=== PATIENT | female | born 1945 | race Caucasian/White ===

== ENCOUNTER 2018-10-03 08:47 | Emergency (ER) | payer MEDICARE, OTHER, SELFPAY ==
[2018-10-03 08:54] VITALS: BP 128/60; PULSE 77; RESP 16; TEMP 36.6; O2SAT 99; BMI 18.9
--- NOTE | 2018-10-03 09:02 | ED.GENADULT ---
HPI - General Adult General Chief complaint: Upper Respiratory Symptoms Stated complaint: Cant swallow Time Seen by Provider: 10/03/18 08:54 Source: patient and family ( and daughter) Mode of arrival: ambulatory Limitations: no limitations History of Present Illness HPI narrative: This is a 73-year-old female who comes in with complaint of feeling there is a piece of food stuck in her esophagus. Patient states that she was having toast and banana earlier today. While she was eating it feels like it did make it past. She states that she threw up just a little bit and some of that fluid came out but she still feels like there is some stuck. She has continued to have to spit her saliva and has not been able to swallow her secretions. Patient states that she had sort of similar symptoms in the past but was always able to swallow things. She has not had issues for a while. She did have an EGD and evaluation and was told that her esophagus is weak but they did see any strictures or other changes at that time, this was 7 or 8 years ago. She takes alendonate. She denies any other medical problems. She has been wearing a heart monitor because she has had palpitations. She has had a hysterectomy but no other surgeries. She does not smoke, she occasionally drinks alcohol no illicit. She is visiting her daughter there from [facility] she is accompanied by her . She denies any fevers. Other than the discomfort that she can small she does not have any other chest pain or shortness of breath. She has not had any other vomiting besides the 1 episode this morning. No other GI or urinary symptoms. No palpitations currently. Related Data Home Medications Medication Instructions Recorded Confirmed alendronate 70 mg PO QWEEK 10/03/18 Review of Systems Review of Systems ROS Unobtainable: All systems reviewed & are unremarkable except as noted in HPI and below ENT Ears, Nose, Mouth, and Throat: Reports dysphagia Cardiovascular Reports chest pain (feels like food stuck in esophagus) and Denies dyspnea Respiratory Denies chest congestion, Denies cough, Denies dyspnea, Denies stridor and Denies wheezing Gastrointestinal Gastrointestinal: Denies abdominal pain, Denies change in stool character, Denies constipation, Reports dysphagia, Denies diarrhea, Denies nausea and Reports vomiting (X1) Genitourinary Denies urinary frequency, Denies dysuria, Denies urinary hesitancy and Denies urinary urgency Allergic/Immunologic Denies wheezing PFSH Social History (Updated 10/03/18 @ 09:15 by Roslyn Jacques DO) marital status: details: Lives in [place] Smoking Status: Never smoker alcohol intake: current substance use type: does not use Exam Narrative Exam Narrative: GENERAL: Alert and oriented x three, thin, well-appearing elderly female in mild distress. HEENT: Head normocephalic, atraumatic, EOMI, pupils reactive, face symmetric, moist mucous membranes, no hoarseness. No muffled voice. NECK: Supple, full range of motion CARDIOVASCULAR: Regular rate and rhythm without murmurs, rubs or gallops. RESPIRATORY: Breath sounds equal bilaterally, no wheezes rales or rhonchi. ABDOMEN: Soft, nontender. Normoactive bowel sounds all 4 quadrants. No guarding or rebound, rigidity, no mass. Patient is spitting clear saliva intermittently into a cup. : No CVA tenderness EXTREMITIES: Normal range of motion, no clubbing or edema. Neurovascularly intact NEUROLOGICAL: Cranial nerves II through XII grossly intact. Moving all extremities SKIN: Warm, dry, no petechiae, no rashes or lesions. Initial Vital Signs Initial Vital Signs: Vital Signs Temperature 97.9 F 10/03/18 08:54 Pulse Rate 77 10/03/18 08:54 Respiratory Rate 16 10/03/18 08:54 Blood Pressure 128/60 10/03/18 08:54 Pulse Oximetry 99 10/03/18 08:54 Course Orders Ordered: Discontinued Medications Glucagon (Glucagen) 1 mg IV NOW ONE Stop: 10/03/18 09:02 Last Admin: 10/03/18 09:21 Dose: 1 mg Ondansetron HCl (Zofran) 4 mg IV NOW ONE Stop: 10/03/18 09:02 Last Admin: 10/03/18 09:21 Dose: 4 mg Vital Signs - 8 hr 10/03/18 08:54 10/03/18 10:08 Temperature 97.9 F Pulse Rate 77 66 Respiratory Rate 16 16 Blood Pressure 128/60 Blood Pressure [Left Wrist] 109/63 Pulse Oximetry 99 95 Medical Decision Making Imaging Data Chest x-ray: Attestation: I personally reviewed and interpreted this imaging study as follows: My impression: no acute process. not ready by radiology. Patient does appear to have implants bilaterally. Radiologist's impression: [address] [address] XRay Report Signed Patient: Libia Agee JMR#: [id number] : 3Acct:[id number] Age/Sex: 73 / FDate of Service: 10/03/18 Loc: ED Accession Number: [id number] Procedure: XR chest 2V Ordering Provider: Roslyn Jacques D.O. PROCEDURE: XR CHEST 2V INDICATIONS: suspected food bolus, passed after glucagon. slight s/s sti TECHNIQUE: 2 views of the chest were acquired. COMPARISON: None. FINDINGS: Surgical changes and devices: Bilateral breast implants with partially calcified capsules. Lungs and pleura: Lungs are clear. No pleural effusions or pneumothorax. Mediastinum: Mediastinal contours are normal. Heart size is normal. Bones and chest wall: No suspicious bony abnormalities. Soft tissues appear unremarkable. IMPRESSION: No acute cardiopulmonary disease process. Dictated by: Annette Leos MD, PhD on 10/03/2018 at 10:36 Approved by: Annette Leos MD, PhD on 10/03/2018 at 10:36 [facility] Narrative Medical decision making narrative: Glucagon IV attempted with improvement of symptoms. Patient is able to swallow liquids as well as her own saliva. She does have a little bit of retained sensation. We discussed this could be from abrasion or irritation of the esophagus. If she is tolerating fluids she does not need further intervention at this time. Patient is discussed she does need follow-up with EGD as an outpatient specialist her last 1 was 7 or 8 years ago. She has recurrent symptoms she should return to the closest ER. I evaluated her chest x-ray she appears have implants but no other obvious changes it has not been read by Radiology yet. Patient's family was updated to this and they wished to leave now without final report. Discharge Plan Departure Patient Disposition: Home Clinical Impression: Food impaction of esophagus Qualifiers: Encounter type: initial encounter Qualified Code(s): T18.128A - Food in esophagus causing other injury, initial encounter Discharge Date/Time: 10/03/18 10:44 Interventions: ED Discharge Assessment Last Done: 10/03/18 10:43 Instructions: Steakhouse Syndrome Activity Restrictions/Additional Instructions: Follow-up with your physician and/or epoxy specialist if he still have 1 for recheck and EGD as an outpatient. You may continue home medication as prescribed. Advance your diet as tolerated. Your chest x-ray does not show any clear acute changes on exam. It has not been read by the radiologist yet. Return to the ER for fevers greater than 100.4 F, rapidly worsening or new chest pain, shortness of breath, persistent vomiting, inability to swelling or saliva or spit. Recurrent symptoms. Black or bloody stools, no abdominal pain or other new or concerning symptoms. Prescriptions: No Action alendronate 70 mg tablet 70 mg PO QWEEK RF: 0
--- NOTE | 2018-10-03 09:07 | ED_ITS ---
HPI - General Adult General Chief complaint: Upper Respiratory Symptoms Stated complaint: Cant swallow Time Seen by Provider: 10/03/18 08:54 Source: patient and family ( and daughter) Mode of arrival: ambulatory Limitations: no limitations History of Present Illness HPI narrative: This is a 73-year-old female who comes in with complaint of feeling there is a piece of food stuck in her esophagus. Patient states that she was having toast and banana earlier today. While she was eating it feels like it did make it past. She states that she threw up just a little bit and some of that fluid came out but she still feels like there is some stuck. She has continued to have to spit her saliva and has not been able to swallow her secretions. Patient states that she had sort of similar symptoms in the past but was always able to swallow things. She has not had issues for a while. She did have an EGD and evaluation and was told that her esophagus is weak but they did see any strictures or other changes at that time, this was 7 or 8 years ago. She takes alendonate. She denies any other medical problems. She has been wearing a heart monitor because she has had palpitations. She has had a hystere ctomy but no other surgeries. She does not smoke, she occasionally drinks alcohol no illicit. She is visiting her daughter there from [facility] she is accompanied by her . She denies any fevers. Other than the discomfort that she can small she does not have any other chest pain or shortness of breath. She has not had any other vomiting besides the 1 episode this morning. No other GI or urinary symptoms. No palpitations currently. Related Data Home Medications Medication Instructions Recorded Confirmed alendronate 70 mg PO QWEEK 10/03/18 Review of Systems Review of Systems ROS Unobtainable: All systems reviewed & are unremarkable except as noted in HPI and below ENT Ears, Nose, Mouth, and Throat: Reports dysphagia Cardiovascular Reports chest pain (feels like food stuck in esophagus) and Denies dyspnea Respiratory Denies chest congestion, Denies cough, Denies dyspnea, Denies stridor and Denies wheezing Gastrointestinal Gastrointestinal: Denies abdominal pain, Denies change in stool character, Denies constipation, Reports dysphagia, Denies diarrhea, Denies nausea and Reports vomiting (X1) Genitourinary Denies urinary frequency, Denies dysuria, Denies urinary hesitancy and Denies urinary urgency Allergic/Immunologic Denies wheezing [facility] Social History (Updated 10/03/18 @ 09:15 by Roslyn Jacques DO) marital status: details: Lives in [place] Smoking Status: Never smoker alcohol intake: current substance use type: does not use Exam Narrative Exam Narrative: GENERAL: Alert and oriented x three, thin, well-appearing elderly female in mild distress. HEENT: Head normocephalic, atraumatic, EOMI, pupils reactive, face symmetric, moist mucous membranes, no hoarseness. No muffled voice. NECK: Supple, full range of motion CARDIOVASCULAR: Regular rate and rhythm without murmurs, rubs or gallops. RESPIRATORY: Breath sounds equal bilaterally, no wheezes rales or rhonchi. ABDOMEN: Soft, nontender. Normoactive bowel sounds all 4 quadrants. No guarding or rebound, rigidity, no mass. Patient is spitting clear saliva intermittently into a cup. : No CVA tenderness EXTREMITIES: Normal range of motion, no clubbing or edema. Neurovascularly intact NEUROLOGICAL: Cranial nerves II through XII grossly intact. Moving all extremities SKIN: Warm, dry, no petechiae, no rashes or lesions. Initial Vital Signs Initial Vital Signs: Vital Signs Temperature 97.9 F 10/03/18 08:54 Pulse Rate 77 10/03/18 08:54 Respiratory Rate 16 10/03/18 08:54 Blood Pressure 128/60 10/03/18 08:54 Pulse Oximetry 99 10/03/18 08:54 Course Orders Ordered: Discontinued Medications Glucagon (Glucagen) 1 mg IV NOW ONE Stop: 10/03/18 09:02 Last Admin: 10/03/18 09:21 Dose: 1 mg Ondansetron HCl (Zofran) 4 mg IV NOW ONE Stop: 10/03/18 09:02 Last Admin: 10/03/18 09:21 Dose: 4 mg Vital Signs - 8 hr 10/03/18 08:54 10/03/18 10:08 Temperature 97.9 F Pulse Rate 77 66 Respiratory Rate 16 16 Blood Pressure 128/60 Blood Pressure [Left Wrist] 109/63 Pulse Oximetry 99 95 Medical Decision Making Imaging Data Chest x-ray: Attestation: I personally reviewed and interpreted this imaging study as follows: My impression: no acute process. not ready by radiology. Patient does appear to have implants bilaterally. Radiologist's impression: [address] [address] XRay Report Signed Patient: Libia Agee JMR#: [id number] : 3Acct:[id number] Age/Sex: 73 / FDate of Service: 10/03/18 Loc: ED Accession Number: [id number] Procedure: XR chest 2V Ordering Provider: Roslyn Jacques D.O. PROCEDURE: XR CHEST 2V INDICATIONS: suspected food bolus, passed after glucagon. slight s/s sti TECHNIQUE: 2 views of the chest were acquired. COMPARISON: None. FINDINGS: Surgical changes and devices: Bilateral breast implants with partially calcified capsules. Lungs and pleura: Lungs are clear. No pleural effusions or pneumothorax. Mediastinum: Mediastinal contours are normal. Heart size is normal. Bones and chest wall: No suspicious bony abnormalities. Soft tissues appear unremarkable. IMPRESSION: No acute cardiopulmonary disease process. Dictated by: Annette Leos MD, PhD on 10/03/2018 at 10:36 Approved by: Annette Leos MD, PhD on 10/03/2018 at 10:36 [facility] Narrative Medical decision making narrative: Glucagon IV attempted with improvement of symptoms. Patient is able to swallow liquids as well as her own saliva. She does have a little bit of retained sensation. We discussed this could be from abrasion or irritation of the esophagus. If she is tolerating fluids she does not need further intervention at this time. Patient is discussed she does need follow-up with EGD as an outpatient specialist her last 1 was 7 or 8 years ago. She has recurrent symptoms she should return to the closest ER. I evaluated her chest x-ray she appears have implants but no other obvious changes it has not been read by Radiology yet. Patient's family was updated to this and they wished to leave now without final report. Discharge Plan Departure Patient Disposition: Home Clinical Impression: Food impaction of esophagus Qualifiers: Encounter type: initial encounter Qualified Code(s): T18.128A - Food in esophagus causing other injury, initial encounter Discharge Date/Time: 10/03/18 10:44 Interventions: ED Discharge Assessment Last Done: 10/03/18 10:43 Instructions: Steakhouse Syndrome Activity Restrictions/Additional Instructions: Follow-up with your physician and/or inspection machine tender if he still have 1 for recheck and EGD as an outpatient. You may continue home medication as prescribed. Advance your diet as tolerated. Your chest x-ray does not show any clear acute changes on exam. It has not been read by the radiologist yet. Return to the ER for fevers greater than 100.4 F, rapidly worsening or new chest pain, shortness of breath, persistent vomiting, inability to swelling or saliva or spit. Recurrent symptoms. Black or bloody stools, no abdominal pain or other new or concerning symptoms. Prescriptions: No Action alendronate 70 mg tablet 70 mg PO QWEEK RF: 0
[2018-10-03] MEDS: ONDANSETRON 4 MG/2 ML INJ IV (09:21)
[2018-10-03] MEDS: GLUCAGON,HUMAN RECOMBINANT 1 MG/ML VIAL IV (09:21)
--- NOTE | 2018-10-03 09:30 | PC.NURSE ---
Patient reports some improvement after glucagon able to swallow warm water. No long spitting up saliva. Reports improvement but still feels some slight discomfort. something is still hanging up
--- NOTE | 2018-10-03 09:34 | DI.RAD.S_ITS ---
PROCEDURE: XR CHEST 2V INDICATIONS: suspected food bolus, passed after glucagon. slight s/s sti TECHNIQUE: 2 views of the chest were acquired. COMPARISON: None. FINDINGS: Surgical changes and devices: Bilateral breast implants with partially calcified capsules. Lungs and pleura: Lungs are clear. No pleural effusions or pneumothorax. Mediastinum: Mediastinal contours are normal. Heart size is normal. Bones and chest wall: No suspicious bony abnormalities. Soft tissues appear unremarkable. IMPRESSION: No acute cardiopulmonary disease process. Dictated by: Annette Leos MD, PhD on 10/03/2018 at 10:36 Approved by: Annette Leos MD, PhD on 10/03/2018 at 10:36
[2018-10-03 10:08] VITALS: BP 109/63; PULSE 66; RESP 16; O2SAT 95
== END 2018-10-03 10:44 | disposition home or self-care (01) ==
PROVIDERS: Emergency Provider Emergency Medicine
DX: T18.128A Food in esophagus causing other injury, initial encounter (principal)
CPT/HCPCS: 36591; 71046; 96374; 96375; 99282; 99284; J1610; J2405

== ENCOUNTER 2018-10-04 23:18 | Observation (INO) | payer MEDICARE, OTHER, SELFPAY ==
[2018-10-04 23:23] VITALS: BP 155/98; PULSE 141; RESP 25; TEMP 36.6; O2SAT 98; BMI 18.9
--- NOTE | 2018-10-04 23:23 | DI.RAD.S_ITS ---
PROCEDURE: XR CHEST 1V INDICATIONS: new onset atrial fibrillation TECHNIQUE: One view of the chest was acquired. COMPARISON: [facility], CR, XR CHEST 2V, 10/03/2018, 9:36. FINDINGS: Surgical changes and devices: Rim calcified mammoplasty implants are seen. Lungs and pleura: Lungs are clear. No pleural effusions or pneumothorax. Mediastinum: The cardiac contours are within normal limits. The aorta demonstrates calcification and tortuosity. Bones and chest wall: No suspicious bony lesions. Mild dextroconvex scoliotic curvature is seen. Age-appropriate osteopenia and bony degenerative changes are seen. Overlying soft tissues appear unremarkable. IMPRESSION: No acute abnormality is seen on this portable chest study. Postoperative and degenerative changes are seen. Dictated by: Guillermo Hagen M.D. on 10/05/2018 at 7:43 Approved by: Guillermo Hagen M.D. on 10/05/2018 at 7:44
[2018-10-04 23:30] VITALS: BP 113/85; PULSE 134; RESP 19; O2SAT 98
[2018-10-04] MEDS: ASPIRIN 81 MG TAB 324 MG PO (23:35)
[2018-10-04] MEDS: SODIUM CHLORIDE 0.9% 1,000 ML 150 ML IV (23:35)
[2018-10-04 23:44] LABS: Add Manual Diff / Slide Review NO; Basophils Absolute Auto 0 /uL (0-100); Basophils Percent Auto 0.7 % (0-2); Eosinophils Absolute Auto 100 /uL (0-450); Eosinophils Percent Auto 2.2 % (2-4); Hematocrit 46.8 % (36-46); Hemoglobin 16.1 g/dL (12.0-16.0); Lymphocytes Absolute Auto 3200 /uL (1100-4500); Lymphocytes Percent Auto 50.9 % (25-40); Mean Corpuscular HGB Conc 34.3 % (30-36); Mean Corpuscular Hemoglobin 32.5 PG (26-34); Mean Corpuscular Volume 94.6 fL (80-100); Monocytes Absolute Auto 500 /uL (0-900); Monocytes Percent Auto 7.2 % (3-14); Neutrophils Absolute Auto 2500 /uL (1500-7000); Platelet Count 228 X10^3/uL (150-400); Red Blood Cell Count 4.95 X10^6/uL (4.0-5.2); Red Cell Distribution Width 13.8 % (11.6-14.8); White Blood Cell Count 6.4 X10^3/uL (4.5-11.0)
[2018-10-04 23:50] LABS: Alanine Aminotransferase 19 IU/L (9-52); Albumin Globulin Ratio 1.7 (1.0-2.8); Alkaline Phosphatase 43 U/L (38-126); Aspartate Aminotransferase 30 IU/L (14-36); BUN Creatinine Ratio 25.7 (6-22); Bilirubin Total 0.9 mg/dL (0.2-1.3); Blood Urea Nitrogen 18 mg/dL (7-17); Calcium 10.3 mg/dL (8.4-10.2); Carbon Dioxide 23 mmol/L (22-32); Chloride 105 mmol/L (98-107); Creatine Kinase 34 U/L (30-135); Estimated Glomerular Filt Rate > 60.0 mL/min (>60); Globulin 2.9 g/dL (1.7-4.1); Glucose 78 mg/dL (80-110); HEMOLYSIS 19 (0-50); Lipase 136 U/L (23-300); Potassium 3.6 mmol/L (3.4-5.1); Sodium 141 mmol/L (137-145); Total Protein 7.9 g/dL (6.3-8.2)
[2018-10-05] VITALS (9 sets, daily range): BP systolic 95–121; BP diastolic 53–85; PULSE 58–141; RESP 11–23; TEMP 37.1; O2SAT 90–914; BMI 18.9
--- NOTE | 2018-10-05 | DI.ECHO.S_ITS ---
[facility] +---------+ : : [address] : : : : [id number] : : : : Phone: [phone]+ Echocardiogram Report + + :Name: SHARI HUBER Study Date: 10/05/2018 Height: 67 in : :[facility] Weight: 121 lb : : Gender: Female BSA: 1.6 m2 : :: 1945 Age: 73 yrs BP: 121/61 mmHg: :Reason For Study: Atrial fibrillation : :Ordering Physician: Mariel : :Hospitalist Performed By: Tara Pierce : :Referring: MONROE GORDON : + + Interpretation Summary The left ventricle is normal in size, wall thickness, and systolic function without any focal wall motion abnormalities. The right ventricle is normal in size and function. The right ventricular systolic pressure is estimated to be at least 26 mmHg based on an estimated right atrial pressure of 3 mm Hg. No hemodynamically significant valvular abnormalities. There is no prior echocardiogram noted for this patient. Procedure: A two-dimensional transthoracic echocardiogram with color flow and Doppler was performed. The study quality was technically adequate. There is no prior echocardiogram noted for this patient. The patient was in normal sinus rhythm during the exam. Left Ventricle: The left ventricle is normal in size, wall thickness, and systolic function without any focal wall motion abnormalities. The ejection fraction is estimated to be 60-65%. Diastolic parameters suggest probable normal left ventricular diastolic function and normal filling pressures. Right Ventricle: The right ventricle is normal in size and function. Atria: The left atrial size is normal. Right atrial size is normal. There is no Doppler evidence for an interatrial shunt. Mitral Valve: The mitral valve is normal in structure and function. There is trace mitral regurgitation. Aortic Valve: The aortic valve is not well visualized. The aortic valve is trileaflet. The aortic valve opens well. There is no aortic valve stenosis. No aortic regurgitation is present. Tricuspid Valve: The tricuspid valve leaflets are thin and pliable. There is trace tricuspid regurgitation. The right ventricular systolic pressure is estimated to be at least 26 mmHg based on an estimated right atrial pressure of 3 mm Hg. Pulmonic Valve: The pulmonic valve is not well visualized. There is mild pulmonic regurgitation. Great Vessels: The aortic root is normal size. The ascending aorta is at the upper limits of normal in size. The aortic arch is normal in size. The IVC is of normal diameter and collapses greater than 50% with a sniff. This suggests a low right atrial pressure of 3 mm Hg. Pericardium/ Pleura There is no pericardial effusion. MMode/2D Measurements & Calculations LVIDd: 3.9 cm LVOT diam: 2.1 cm LVIDs: 2.4 cm Ao root diam: 2.9 cm FS: 38.7 % Aortic Jxn: 2.5 cm IVSd: 0.71 cm asc Aorta Diam: 3.4 cm LVPWd: 0.80 cm Ao Arch Diam (Prox Trans): 2.7 cm LV schroedre. diameter/BSA (cm/m^2): 2.4 LV sys. diameter/BSA (cm/m^2): 1.5 LA A2 area: 18.3 cm2 RA long axis: 4.6 cm LA A4 area: 18.2 cm2 RA area: 15.7 cm2 LA length (vol): 4.9 cm RA vol: 45.3 ml LA vol: 58.0 ml RA : 27.7 ml/m2 LA vol index: 35.5 ml/m2 IVC diam: 1.4 cm RVD1 (basal): 3.2 cm TAPSE: 2.4 cm Doppler Measurements & Calculations Ao V2 max: 125.3 cm/sec LVOT Max Cole: 120.9 cm/sec Ao V2 mean: 86.7 cm/sec LV V1 max P.8 mmHg Ao max P.3 mmHg LV V1 VTI: 24.5 cm Ao mean P.4 mmHg NATO(I,D): 3.3 cm2 Ao V2 VTI: 25.5 cm NATO(V,D): 3.4 cm2 sev ratio: 0.96 NATO indexed to BSA (cm^2/m^2): 2.0 MV E max cole: 87.9 cm/sec TR max cole: 238.7 cm/sec MV A max cole: 76.3 cm/sec TR max P.8 mmHg MV E/A: 1.2 PA V2 max: 80.5 cm/sec Med Peak E' Cole: 7.0 cm/sec PA V2 mean: 58.3 cm/sec E/E' med: 12.5 PA mean P.5 mmHg Lat Peak E' Cole: 7.2 cm/sec PA Accel Time: 0.14 sec E/E' lat: 12.3 E/e' average: 12.4 MV dec time: 0.20 sec MV P1/2t: 58.7 msec MV P1/2t max cole: 87.9 cm/sec SV(LVOT): 85.1 ml MVA(P1/2t): 3.7 cm2 Electronically signed by: Cristhian Lima M.D. on Reading Physician:10/05/2018 01:32 PM
[2018-10-05 00:02] LABS: Troponin I < 0.012 ng/mL (0.01-0.034)
[2018-10-05] MEDS: dilTIAZem 5 MG/ML SDV 10 MG IV (00:10)
[2018-10-05] MEDS: DILTIAZEM 125 MG/125 ML PIGGYBACK IV (00:12)
--- NOTE | 2018-10-05 00:27 | ED_ITS ---
HPI - Arrhythmia/Palpitations General Chief Complaint: Arrhythmia/Palpitations Stated Complaint: has a racing heart, is on montioring Time Seen by Provider: 10/04/18 23:20 Source: patient and family Mode of arrival: ambulatory Limitations: no limitations History of Present Illness HPI narrative: 73-year-old female nonsmoker presents to the emergency department with her in the chief complaint of severe palpitations and shortness of breath over the course of the day. She feels fatigued and a bit dizzy. 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 She takes no medications other than alendronate weekly. She is not anticoagulated. She denies any significant dietary change. MD complaint: rapid heart beat Onset (ago): day(s) Duration: intermittent Severity: moderate Context: occurred during rest Associated symptoms: denies other symptoms Related Data Home Medications Medication Instructions Recorded Confirmed alendronate 70 mg PO QWEEK 10/03/18 Allergies Allergy/AdvReac Type Severity Reaction Status Date / Time ampicillin Allergy Verified 10/04/18 23:28 Review of Systems Constitutional Denies chills, Denies fever(s), Denies lethargy and Denies weakness Eyes Denies change in vision, Denies eye discharge, Denies irritation and Denies loss of vision ENT Ears, Nose, Mouth, and Throat: Denies change in voice, Denies neck pain and Denies sore throat Cardiovascular Denies chest pain, Reports irregular heart rhythm, Denies lightheadedness, Denies palpitations, Reports dyspnea, Denies dyspnea on exertion and Denies orthopnea Respiratory Denies cough, Reports dyspnea, Denies dyspnea on exertion and Denies wheezing Gastrointestinal Gastrointestinal: Denies abdominal pain, Denies change in bowel habits, Denies diarrhea, Denies nausea and Denies vomiting Genitourinary Denies hematuria, Denies flank pain, Denies urinary incontinence and Denies urinary urgency Musculoskeletal Denies neck pain Integumentary/Breasts Denies pruritus, Denies erythema, Denies rash and Denies wounds Neurologic Denies confusion, Denies loss of vision and Denies weakness Psychiatric Denies anxiety, Denies confusion, Denies depression, Denies homicidal ideation and Denies suicidal ideation Endocrine Denies palpitations Hematologic/Lymphatic Denies easy bruising Allergic/Immunologic Denies wheezing PFSH Social History (Updated 10/03/18 @ 09:15 by Roslyn Jacques DO) marital status: details: Lives in [place] Smoking Status: Never smoker alcohol intake: current substance use type: does not use Social History marital status: details: Lives in [place] Smoking Status: Never smoker alcohol intake: current substance use type: does not use Exam Narrative Exam Narrative: GENERAL:73F appears younger than stated age, in moderate distress, visibly short of breath HEAD: Atraumatic. Normocephalic. No temporal or scalp tenderness. EYES: Pupils equal round and reactive. Extraocular motions intact. No scleral icterus. No injection or drainage. ENT: Nose without bleeding, purulent drainage or septal hematoma. Throat without erythema, tonsillar hypertrophy or exudate. Uvula midline. Airway patent. NECK: Trachea midline. No JVD or lymphadenopathy. Supple, nontender, no meningeal signs. CARDIOVASCULAR: Tachycardic and irregular rhythm without murmurs, gallops, or rubs. RESPIRATORY: Clear to auscultation. Breath sounds equal bilaterally. No wheezes, rales, or rhonchi. GASTROINTESTINAL: Abdomen soft, non-tender, nondistended. No hepato- splenomegaly, or palpable masses. No guarding. EXTREMITIES: No clubbing, cyanosis, or edema. No joint tenderness, effusion, or edema noted. BACK: Nontender without deformity or crepitance. No flank tenderness. NEURO: AOx3. SKIN: No rash or erythema. Initial Vital Signs Initial Vital Signs: Vital Signs Temperature 97.8 F 10/04/18 23:23 Pulse Rate 141 H 10/04/18 23:23 Respiratory Rate 25 H 10/04/18 23:23 Blood Pressure 155/98 H 10/04/18 23:23 Pulse Oximetry 98 10/04/18 23:23 Scores CHADS-VASc Congestive heart failure: no Hypertension: no Age 75 years or older: yes Diabetes mellitus: no Stroke, TIA, or TE: no Vascular disease: no Age 65 to 74 years: no Sex category (female): Female CHADS-VASc Score: 3 Citation:: hospitalist will discuss anticoagulation options with patient Course Orders Ordered: ED Orders 10/04/18 23:23 XR chest 1V Stat EKG-12 Lead Stat 10/04/18 23:30 Complete Blood Count AUTO DIFF Stat Comprehensive Metabolic Panel Stat Lipase Stat Troponin & CK Cardiac Panel Stat 10/05/18 00:30 Magnesium Stat Sodium Chloride (Normal Saline 0.9%) 1,000 mls @ 150 mls/hr IV CONT APOLINAR Last Admin: 10/04/18 23:35 Dose: 150 mls/hr DILTIAZEM (Diltiazem 125 Mg/125 Ml-D5w) 125 mg in 125 mls @ 5 mls/hr IV TITRATE APOLINAR; Protocol Last Admin: 10/05/18 00:12 Dose: 5 mg/hr, 5 mls/hr Discontinued Medications Aspirin (Aspirin Chew) 324 mg PO NOW ONE Stop: 10/04/18 23:24 Last Admin: 10/04/18 23:35 Dose: 324 mg Diltiazem HCl (Cardizem) 10 mg IV NOW ONE Stop: 10/04/18 23:33 Last Admin: 10/05/18 00:10 Dose: 10 mg Potassium Chloride (Potassium Chloride) 40 meq PO NOW ONE Stop: 10/05/18 00:33 Last Admin: 10/05/18 00:45 Dose: 40 meq Reevaluation(s) Reevaluation #1: cardizem results in drop of HR from 140-150s down to 110s. Drip ordered Consultations Consultation #1: hospitalist happy to accept Vital Signs - 8 hr 10/04/18 23:23 10/04/18 23:30 10/05/18 00:10 Temperature 97.8 F Pulse Rate 141 H 134 H 141 H Respiratory Rate 25 H 19 Blood Pressure 155/98 H 113/85 Blood Pressure [Right Arm] 113/85 Pulse Oximetry 98 98 10/05/18 00:31 Temperature Pulse Rate 117 H Respiratory Rate 18 Blood Pressure Blood Pressure [Right Arm] 102/74 Pulse Oximetry 97 MDM - Arrhythmia/Palpitations Lab Data Result diagrams: 10/04/18 23:30 10/04/18 23:30 Lab Results 10/04/18 10/04/18 10/04/18 Range/Units 23:30 23:30 23:30 WBC 6.4 (4.5-11.0) X10^3/uL RBC 4.95 (4.0-5.2) X10^6/uL Hgb 16.1 H (12.0-16.0) g/dL Hct 46.8 H (36-46) % MCV 94.6 (80-100) fL MCH 32.5 (26-34) PG MCHC 34.3 (30-36) % RDW 13.8 (11.6-14.8) % Plt Count 228 (150-400) X10^3/uL Neut % (Auto) 39.0 L (50-75) % Lymph % (Auto) 50.9 H (25-40) % [place] % (Auto) 7.2 (3-14) % Eos % (Auto) 2.2 (2-4) % Baso % (Auto) 0.7 (0-2) % Neut # (Auto) 2500 (2582-0437) /uL Lymph # (Auto) 3200 (5190-7251) /uL [place] # (Auto) 500 (0-900) /uL Eos # (Auto) 100 (0-450) /uL Baso # (Auto) 0 (0-100) /uL Sodium 141 (137-145) mmol/L Potassium 3.6 (3.4-5.1) mmol/L Chloride 105 (98-107) mmol/L Carbon Dioxide 23 (22-32) mmol/L BUN 18 H (7-17) mg/dL Creatinine 0.70 (0.52-1.04) mg/dL Estimated GFR > 60.0 (>60) mL/min BUN/Creatinine Ratio 25.7 H (6-22) Glucose 78 L (80-110) mg/dL Calcium 10.3 H (8.4-10.2) mg/dL Magnesium 2.2 (1.6-2.3) mg/dL Total Bilirubin 0.9 (0.2-1.3) mg/dL AST 30 (14-36) IU/L ALT 19 (9-52) IU/L Alkaline Phosphatase 43 (38-126) U/L Total Creatine Kinase 34 (30-135) U/L CK-MB (CK-2) TNP CK-MB (CK-2) Rel Index TNP Troponin I < 0.012 (0.01-0.034) ng/mL Total Protein 7.9 (6.3-8.2) g/dL Albumin 5.0 (3.5-5.0) g/dL Globulin 2.9 (1.7-4.1) g/dL Albumin/Globulin Ratio 1.7 (1.0-2.8) Lipase 136 (23-300) U/L Urine Dip Bedside Urine Glucose Negative Bedside Urine Bilirubin - Negative Bedside Urine Ketone - Negative Urine Specific [place] 1.015 Bedside Urine Occult Blood - Negative Bedside Urine pH 7.0 Bedside Urine Protein - Negative Bedside Urine Urobilinogen - Negative Bedside Urine Nitrite - Negative Bedside Urine Leukocytes - Negative Esterase ECG Data Attestation: I personally reviewed and interpreted this ECG as follows: Prior ECG tracings: not available for review Interpretation: Rapid AFib in the 140s without signs of ischemia MDM Narrative Medical decision making narrative: 73-year-old female with newly discovered AFib times 30 minutes. She is not anticoagulated and not in extremis. She has been having episodes off and on for the past month or so. This patient is not appropriate candidate for electrocardioversion and require rate control and anticoagulation resulting admission into the ICU Discharge Plan Departure Patient Disposition: Admitted As Inpatient Clinical Impression: Atrial fibrillation with rapid ventricular response Admit Date/Time: 10/05/18 00:32 Admit Provider: Rosas Milner
[2018-10-05] MEDS: POTASSIUM CHLORIDE 20 MEQ/15 ML UDC 40 MEQ PO (00:45)
[2018-10-05 00:52] LABS: Magnesium 2.2 mg/dL (1.6-2.3)
--- NOTE | 2018-10-05 01:43 | PM.HP.1 ---
History of Present Illness Date Patient Seen: 10/05/18 Time Patient Seen: 01:13 Chief complaint: has a racing heart, is on montioring Narrative: Libia Agee is a 73-year-old female patient with a history significant for globus dysphagia and osteoporosis who presents to the emergency room with palpitations and tachycardia with associated lightheadedness, slight chest heaviness and heavy breathing with stents of uneasiness. The patient reports that her tachycardia began earlier today and has been unrelenting. She she endorses history of palpitations for 6-8 months and has been under recent investigation by her primary care physician. She just underwent ZIO Patch monitoring for 1 month that was mailed to her associate professor 2 days ago. The patient's previous episodes were typically less than 1 hour and self terminating with no significant associated symptomatology. Patient denies any antecedent complaints with no recent cold or illness, fevers or chills, no headaches or dizziness, nasal congestion or sore throat. The patient endorses mild heaviness across her chest with palpitations. She denies radiation of the pain to the back arms or neck. She has had 1 episode of slight diaphoresis while in the ER but no complaints shortness of breath cough or wheezing, no abdominal pain, nausea vomiting, diarrhea or constipation. She denies urinary symptoms. She reports no extremity or joint pain however will occasionally have of slight ataxia. The patient was seen in the ER Saturday morning for inability to swallow which she has experienced previously last episode being 7 to 8 years ago. Patient reports she was eatin and felt food to become stuck and was unable to swallow secretions. The patient was treated with glucagon in the ER with resolution of symptoms however residual foreign body sensation in her esophagus at the time of discharge to home. At that time the patient had no cardiac symptoms, no chest pain palpitations or shortness of breath. In the ER the patient is found to be afebrile at temperature of 97.8?, heart rate upon arrival was 141, blood pressure 155/98, respirations of 25 with oxygen saturation 98%. The patient received Cardizem 10 mg IV with reduction in heart rate to 110s to 120s and improvement in blood pressure to 113/85. Chest x-ray taken finds no acute cardiopulmonary process and 12 lead EKG identifies AFib with RVR with a ventricular rate of 136 without signs of ischemia or infarct. On laboratory studies the patient has white count of 6.4 with a hemoglobin of 16.1 and hematocrit of 46.8 with platelets of 222. On chemistry she has a normal sodium with a potassium of 3.6 and a magnesium of 2.2. Her BUN is 18 with a creatinine is 0.7 with a BUN creatinine ratio of 25.7-1. Her CK is negative and troponin is less than 0.012. Patient History Medical History (Updated 10/05/18 @ 01:45 by ELKIN Reese) Dysphagia (Acute) Osteoporosis (Acute) Surgical History History of bilateral breast implants (Acute) History of esophagogastroduodenoscopy (EGD) (Acute) History of exploratory laparotomy (Acute) History of partial hysterectomy (Acute) Social History marital status: details: Lives in [place] Smoking Status: Never smoker alcohol intake: current substance use type: does not use Family & Social History Safety & Behavioral: Feels Safe in Current Yes Environment Tobacco & Substance use: Smoking Status Never smoker alcohol intake current alcohol intake frequency 3 or more drinks per day Substance Use Type does not use Comment: The patient lives in a single family home in [place] with her to whom she has been for 29 years. Her father from Alzheimer's and her mother had atrial fibrillation. She has 1 sister who is healthy and 2 daughters both in good health. Smoking: The patient has never smoked Alcohol: Patient describes variable pattern of alcohol consumption when visiting will have 2-3 drinks daily other times fever. Substance use: The patient denies recreation of arms at [place], herbal or cannabis products. Advanced directives: Patient has a formal POLST designation with her primary care and wishes to be FULL CODE. She designates her to be her surrogate decision maker. Meds Home Medications Medication Instructions Recorded Confirmed Type alendronate 70 mg PO QWEEK 10/03/18 History Allergies Allergy/AdvReac Type Severity Reaction Status Date / Time ampicillin Allergy Verified 10/04/18 23:28 Review of Systems Review of Systems All systems reviewed & are unremarkable except as noted in HPI and below Exam Vital Signs (past 8 hours): - 10/04/18 23:23 10/04/18 23:30 10/05/18 00:10 Temperature 97.8 F Pulse Rate 141 H 134 H 141 H Respiratory Rate 25 H 19 Blood Pressure 155/98 H 113/85 Blood Pressure [Right Arm] 113/85 Pulse Oximetry 98 98 10/05/18 00:31 10/05/18 01:31 Temperature Pulse Rate 117 H 97 H Respiratory Rate 18 20 Blood Pressure Blood Pressure [Right Arm] 102/74 116/77 Pulse Oximetry 97 97 Oxygen Delivery Method Room Air Narrative Exam Narrative: GENERAL APPEARANCE: well developed, slender female, mildly anxious appearing. HEAD: Normocephalic, atraumatic, no scalp lesions. EYES: pupils equal, round, reactive to light and accommodation, sclera non-icteric, extraocular movement intact without nystagmus. EARS: normal external structures, no ear pain NOSE: slight tenderness to left maxillary sinuse on percussion, no rhinorrhea ORAL CAVITY: mucosa moist without lesions or exudate, palate normal, tongue in midline. THROAT: no dysphagia, no erythema, no exudate, pharynx normal, uvula midline. NECK/THYROID: neck supple, no jugular venous distention, no carotid bruit, no thyromegaly, trachea midline. LYMPH NODES: no cervical or supraclavicular lymphadenopathy. SKIN: warm and slight diaphoresis, no suspicious lesions, no rashes, good turgor. HEART: Irregularly irregular rhythm, S1-S2 without murmur, no rubs or gallops, 1+ posterior tibial pulses, no edema LUNGS: clear to auscultation bilaterally, no coarseness crackles or wheezing, no cough present CHEST: Good tidal volume with symmetrical movement, no accessory muscle use, no pain to AP and lateral compression. ABDOMEN: Soft, round, no distention, no epigastric or abdominal tenderness on palpation, no guarding or peritoneal signs, no organomegaly, no flank or suprapubic tenderness, active bowel tones. BACK: Slight curvature of thoracic spine, nontender to palpation, no CVA tenderness on percussion EXTREMITIES: moves all extremities, strength is 5/5 and symmetrical, well perfused. NEUROLOGIC: AAO x4, no focal neurologic deficits, cranial nerves II-XII grossly intact , sensory exam intact to light touch, hearing grossly normal to speech. PSYCH: Mildly anxious, cognitive function intact, good eye contact, stable mood with congruent affect Objective Labs Result Diagrams: 10/04/18 23:30 10/04/18 23:30 Labs: Laboratory Results - last 24 hr 10/04/18 10/04/18 10/04/18 23:30 23:30 23:30 WBC 6.4 RBC 4.95 Hgb 16.1 H Hct 46.8 H MCV 94.6 MCH 32.5 MCHC 34.3 RDW 13.8 Plt Count 228 Neut % (Auto) 39.0 L Lymph % (Auto) 50.9 H [place] % (Auto) 7.2 Eos % (Auto) 2.2 Baso % (Auto) 0.7 Neut # (Auto) 2500 Lymph # (Auto) 3200 [place] # (Auto) 500 Eos # (Auto) 100 Baso # (Auto) 0 Sodium 141 Potassium 3.6 Chloride 105 Carbon Dioxide 23 BUN 18 H Creatinine 0.70 Estimated GFR > 60.0 BUN/Creatinine Ratio 25.7 H Glucose 78 L Calcium 10.3 H Magnesium 2.2 Total Bilirubin 0.9 AST 30 ALT 19 Alkaline Phosphatase 43 Total Creatine Kinase 34 CK-MB (CK-2) TNP CK-MB (CK-2) Rel Index TNP Troponin I < 0.012 Total Protein 7.9 Albumin 5.0 Globulin 2.9 Albumin/Globulin Ratio 1.7 Lipase 136 Assessment & Plan Assessment & Plan narrative: The patient is admitted to the hospital related to new onset atrial fibrillation with rapid ventricular response requiring IV medication, medication infusion and continuous monitoring. 1. New onset atrial fibrillation, present on admission. -patient with history of palpitations for 6-8 months being investigated by PCP with ZIO monitor patch. The monitoring is completed however the results are unknown. -patient with self terminating palpitations typically lasting 20 to 45 minutes without associated symptoms. Today tachycardia persists presenting to the ER with a heart rate of 141 with atrial fibrillation confirmed on 12 lead EKG. -patient has received Cardizem 10 mg with improvement heart rate and blood pressure and started on Cardizem drip at 5 mg with improvement of heart rate in the 90s to 100s. CK and troponin are negative. -potassium is 3.6 and is administered 40 mEq of KCl to chief goal of greater than 4.0. Magnesium is 2.2. -will continue titration of diltiazem for for heart rate control and blood pressure. -will start metoprolol 12.5 mg twice daily for rhythm and rate management going forward. -patient also has atrial fibrillation is on Eliquis, they share the same drug plan, therefore the patient will be started on Eliquis 5 mg twice daily. -will continue normal saline at 100 cc/hour. 2. Chronic dysphagia, stable -the patient was seen yesterday for esophageal globus relieved with glucagon. She has previously undergone EGD without identification of stricture. -patient is asymptomatic today with no difficulty chewing or swallowing. -absent symptoms the patient can follow up with her PCP. The patient is admitted to the hospital related to the severity of her symptoms, risk for complications and adverse effects. She will be admitted as an inpatient to the ICU with continuous IV infusion of diltiazem resuscitating ongoing close blood pressure and heart rhythm monitoring. Critical care time: 35 minutes spent in direct [id number] with the patient performing examination and follow-up. Scores GCS Bon[place]acio coma scale eye opening: Spontaneous [place] coma scale verbal response: Orientated Bonifacio coma scale motor response: Obey commands Bonifacio coma scale total score: 15
[2018-10-05] MEDS: APIXABAN 5 MG TABLET PO (02:56)
[2018-10-05 05:19] LABS: BUN Creatinine Ratio 26.7 (6-22); Blood Urea Nitrogen 16 mg/dL (7-17); Calcium 8.8 mg/dL (8.4-10.2); Carbon Dioxide 23 mmol/L (22-32); Chloride 109 mmol/L (98-107); Estimated Glomerular Filt Rate > 60.0 mL/min (>60); Glucose 88 mg/dL (80-110); HEMOLYSIS 34 (0-50); Potassium 4.2 mmol/L (3.4-5.1); Sodium 138 mmol/L (137-145)
[2018-10-05 05:31] LABS: Troponin I < 0.012 ng/mL (0.01-0.034)
[2018-10-05 05:53] LABS: TSH w/ Reflex to FT4 0.59 uIU/mL (0.47-4.68)
--- NOTE | 2018-10-05 06:57 | PC.NURSE ---
NOC NOTE: Pt arrived from ED, was able to amb to into the room, SBA. Denies pain, denies SOB and denies nausea. Pt converted from Afib upon arrival, dilt gtt stopped per protocol. Pt has been slightly hypotensive and bradycardic, ELKIN Milner is aware. IV fluids running as ordered. Pt is resting quietly at this time.
--- NOTE | 2018-10-05 09:04 | CM.DANOTE ---
DCP: Case received, EMR reviewed and met with patient. Introduced self and role. Was able to obtain baseline health information from patient. DCP assessment template completed with information currently available. Patient is a 73 year old female who admitted early this morning to the care of the hospitalist team. PCP: Dr. Fish. Payer: confirmed: Medicare Patient came to hospital secondary to having heart palpitations. Patient was having these symptoms prior, when she had seen her doctor. She had been wearing a holter monitor, and had just mailed it. Met with patient. Alert and oriented, pleasant. She resides in [place], [place], and is up here visiting her daughter with her spouse, for . She holds diagnosis of A-fib, with ventricular response. Patient stated that they may be doing an echo today. She has been on a Diltizem drip. She stated, she is feeling somewhat better today. She is independent at home. P: DCP to continue to follow. Patient should be able to go home when she is medically stable. Sandra Fernandez RN/[employer]
--- NOTE | 2018-10-05 09:12 | PC.NURSE ---
Addendum entered by Elaine Sheikh R.N. 10/05/18 13:49: prepared for d/c with info given to pt and family r/t metoprolol and eliquis- discharge from hospital at 1305 Original Note: am assessment complete- pt in nsr without any ectopy- denies chest pressure or pain or dizziness, placed portable tele monitor on pt and allowed her to ambulate about in room and got to br- gait is steady and pt is hopeful to go home later this date
[2018-10-05] MEDS: METOPROLOL IR 25 MG TABLET 12.5 MG PO (10:15)
--- NOTE | 2018-10-05 11:34 | P.DS_ITS ---
History of Present Illness Date Patient Seen: 10/05/18 Chief complaint: has a racing heart, is on montioring Narrative: Libia Agee is a 73-year-old female patient with a history significant for globus dysphagia and osteoporosis who presents to the emergency room with palpitations and tachycardia with associated lightheadedness, slight chest heaviness and heavy breathing with stents of uneasiness. The patient reports that her tachycardia began earlier today and has been unrelenting. She she endorses history of palpitations for 6-8 months and has been under recent investigation by her primary care physician. 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 The patient's previous episodes were typically less than 1 hour and self terminating with no significant associated symptomatology. Patient denies any antecedent complaints with no recent cold or illness, fevers or chills, no headaches or dizziness, nasal congestion or sore throat. The patient endorses mild heaviness across her chest with palpitations. She denies radiation of the pain to the back arms or neck. She has had 1 episode of slight diaphoresis while in the ER but no complaints shortness of breath cough or wheezing, no abdominal pain, nausea vomiting, diarrhea or constipation. She denies urinary symptoms. She reports no extremity or joint pain however will occasionally have of slight ataxia. The patient was seen in the ER Calixto morning for inability to swallow which she has experienced previously last episode being 7 to 8 years ago. Patient reports she was eatin and felt food to become stuck and was unable to swallow secretions. The patient was treated with glucagon in the ER with resolution of symptoms however residual foreign body sensation in her esophagus at the time of discharge to home. At that time the patient had no cardiac symptoms, no chest pain palpitations or shortness of breath. In the ER the patient is found to be afebrile at temperature of 97.8?, heart rate upon arrival was 141, blood pressure 155/98, respirations of 25 with oxygen saturation 98%. The patient received Cardizem 10 mg IV with reduction in heart rate to 110s to 120s and improvement in blood pressure to 113/85. Chest x-ray taken finds no acute cardiopulmonary process and 12 lead EKG identifies AFib with RVR with a ventricular rate of 136 without signs of ischemia or infarct. On laboratory studies the patient has white count of 6.4 with a hemoglobin of 16.1 and hematocrit of 46.8 with platelets of 222. On chemistry she has a normal sodium with a potassium of 3.6 and a magnesium of 2.2. Her BUN is 18 with a creatinine is 0.7 with a BUN creatinine ratio of 25.7-1. Her CK is negative and troponin is less than 0.012. Discharge Providers Date of admission: 10/05/18 00:32 Discharge Date: 10/05/18 Consults: 10/05/18 01:38 Consult to Discharge Planning Routine Comment: Discharge provider: Susan Will MD Summary Discharge Diagnosis: 1. Paroxysmal atrial fibrillation, present on admission now in sinus rhythm 2. Osteoporosis Hospital Course: Patient is a 73-year-old female who presented to the hospital with rapid atrial fibrillation. She was initially treated with Cardizem IV. She spontaneously converted. Patient was placed on metoprolol 12.5 b.i.d.. She received half a dose in the morning as her heart rate was 60 in the morning. She has since ambulated and tolerated this medication without difficulty. Given her recurrent episodes of atrial fibrillation for which she is currently using a Zoll monitor it is felt that the patient should be on low-dose metoprolol for rate control. She was started on Eliquis and this will be continued. She is traveling from [place] and will return home to her PCP with follow-up with her doctor for referral to Cardiology. An echocardiogram has been obtained this morning. The results of which are still pending. Patient will request records for her PCP at discharge. She tolerated the low-dose metoprolol without difficulty. She was deemed appropriate for discharge and arrangements were made for her to discharge home. Status at Discharge Cognitive/behavioral status at discharge: oriented Functional status at discharge: independent ambulation Overall status at discharge: patient is back to baseline Time Spent with Patient Less than 30 minutes Exam Vital Signs (past 8 hours): - 10/05/18 04:00 10/05/18 05:30 10/05/18 06:30 Temperature Pulse Rate 59 L 59 L 68 Respiratory Rate 14 14 14 Blood Pressure 95/60 115/57 L 101/54 L Pulse Oximetry 90 L 914 H 10/05/18 09:00 Temperature 98.7 F Pulse Rate 75 Respiratory Rate 18 Blood Pressure 121/61 Pulse Oximetry 96 Oxygen Delivery Method Room Air Oxygen Flow Rate 0 Narrative Exam Narrative: Pleasant female Lungs: Clear to auscultation Cardiac exam: Regular rate rhythm normal S1-S2 Abdomen: Soft nontender nondistended Extremities: No edema Objective Labs Result Diagrams: 10/04/18 23:30 10/05/18 04:25 Labs: Laboratory Results - last 24 hr 10/04/18 10/04/18 10/04/18 23:30 23:30 23:30 WBC 6.4 RBC 4.95 Hgb 16.1 H Hct 46.8 H MCV 94.6 MCH 32.5 MCHC 34.3 RDW 13.8 Plt Count 228 Neut % (Auto) 39.0 L Lymph % (Auto) 50.9 H [place] % (Auto) 7.2 Eos % (Auto) 2.2 Baso % (Auto) 0.7 Neut # (Auto) 2500 Lymph # (Auto) 3200 [place] # (Auto) 500 Eos # (Auto) 100 Baso # (Auto) 0 Sodium 141 Potassium 3.6 Chloride 105 Carbon Dioxide 23 BUN 18 H Creatinine 0.70 Estimated GFR > 60.0 BUN/Creatinine Ratio 25.7 H Glucose 78 L Calcium 10.3 H Magnesium 2.2 Total Bilirubin 0.9 AST 30 ALT 19 Alkaline Phosphatase 43 Total Creatine Kinase 34 CK-MB (CK-2) TNP CK-MB (CK-2) Rel Index TNP Troponin I < 0.012 Total Protein 7.9 Albumin 5.0 Globulin 2.9 Albumin/Globulin Ratio 1.7 Lipase 136 TSH Nasal Screen MRSA (PCR) 10/05/18 10/05/18 10/05/18 03:08 04:25 04:25 WBC RBC Hgb Hct MCV MCH MCHC RDW Plt Count Neut % (Auto) Lymph % (Auto) [place] % (Auto) Eos % (Auto) Baso % (Auto) Neut # (Auto) Lymph # (Auto) [place] # (Auto) Eos # (Auto) Baso # (Auto) Sodium 138 Potassium 4.2 Chloride 109 H Carbon Dioxide 23 BUN 16 Creatinine 0.60 Estimated GFR > 60.0 BUN/Creatinine Ratio 26.7 H Glucose 88 Calcium 8.8 Magnesium Total Bilirubin AST ALT Alkaline Phosphatase Total Creatine Kinase CK-MB (CK-2) CK-MB (CK-2) Rel Index Troponin I < 0.012 Total Protein Albumin Globulin Albumin/Globulin Ratio Lipase TSH 0.59 Nasal Screen MRSA (PCR) Negative for mrsa Discharge Plan Discharge Plan Discharge Problem: Atrial fibrillation with rapid ventricular response Patient Disposition: Home Discharge Med Rec/Prescriptions Prescriptions: New Eliquis 5 mg Tablet 5 mg PO BID Qty: 30 RF: 0 metoprolol tartrate 50 mg tablet 6.25 mg PO BID Qty: 30 RF: 0 Continued alendronate 70 mg tablet 70 mg PO QWEEK RF: 0 Provider Discharge Instructions Diet: Diet as Tolerated Activity: as tolerated Discharge Data Attending Provider: Rosas Milner Admit Date/Time: 10/05/18 00:32 Quality VTE Deep Vein Thrombosis/Pulmonary Embolism Present on Admission: No
== END 2018-10-05 13:05 | disposition home or self-care (01) ==
LOC: ED 23:58 → ICU 10-05 01:06
PROVIDERS: Admitting Provider Nurse Practitioner Adult Health; Emergency Provider Emergency Medicine; Visit Provider Nurse Practitioner Adult Health
DX: I48.0 Paroxysmal atrial fibrillation (principal); R06.02 Shortness of breath; R00.2 Palpitations; M81.0 Age-related osteoporosis without current pathological fracture; R13.10 Dysphagia, unspecified
CPT/HCPCS: 36415; 36591; 71045; 80048; 80053; 81003; 82550; 83690; 83735; 84443; 84484; 85025; 87797; 93005; 93010; 93306; 96361; 96365; 96366; 96375; 99283; 99285; G0378